=== PATIENT | male | born 1955 | race Caucasian/White ===

== ENCOUNTER → 2024-07-26 | Outpatient (CLI) | payer MEDICARE ==
[2024-07-26 13:16] VITALS: BP 119/82; PULSE 78; RESP 16
--- NOTE | 2024-07-26 15:04 | P.PAINPG ---
PQRS Measure Charge Sheet Comment: HISTORY OF PRESENT ILLNESS: A 69 yr old male as a referral from Dr Ricks presents today w severe and chronic secondary to L4-L5 laminectomy/ discectomy/ fusion w hardware for evaluation. Pt states pain level is provoked at 6/10 in intensity, constant, localized in the lower lumbar spine, predominantly axial, achy in character w occasional shooting pain towards the L hip and L knee. Pain is provoked by laying supine. Pain is alleviated by PT x 6 wks which ended in May 2024, physician guided home stretches daily since May 2024, medications (Ibu, Tyl, ASA, Diclofenac Gel), topical, heat, ice, repositioning and rest . PMH: OA, CO (2001) PSH: R Total Hip Replacement, Cardiac Catheterization w Stents (2001, 2002) SH: Negative x3 FH: Non contributory All: See list Meds: See list REVIEW OF ORGAN SYSTEMS: CONSTITUTIONAL: No fevers or chills. No recent weight loss. NEUROLOGICAL: + numbness and tingling along the distal extremities. No seizure disorders or headaches. MUSCULOSKELETAL: + pain PSYCHIATRIC: Denies current depression or suicidal thoughts. Physical Examinations : Constitutional : Cooperative , not in acute distress . Neurologic : Cranial nerve II to XII intact. No focal neurological deficits. Psychiatric : alert & oriented x 3. Matching mood & appropriate affect. Judgment & insight intact. Musculoskeletal : Cervical Spine Motor strength in the deltoid and biceps: Normal right side. Normal Left side Motor strength biceps and the wrist extensors: Normal right side . Normal left side Motor strength in the triceps muscle: Normal right side. Normal left side Deep tendon reflexes: Normal at the biceps. Normal at Brachioradialis. Normal at triceps Vertebral body tenderness to deep palpation over Cervical facet loading test: positive bilaterally Spurling test: positive bilaterally Neck distraction test: positive bilaterally Karolyn sign: positive bilaterally Lumbar spine +Incisional scars intact Motor strength lower extremities ,thigh and legs 5/5 Right side , 5/5 Left side Deep tendon reflexes : Normal Knee Jerk. Normal Ankle Jerk Vertebral body tenderness over L4 Morris Test positive Lumbar facet Loading Test: positive Right / positive Left Range of motion of the lumbar spine Flexion 30 degrees, extension 10 degrees Straight Leg Raise test: Left/ Right positive at < 35 degrees Rush test: positive right / positive left. Severe tenderness over the Sacroiliac joint on the Right / Left sides Gaenslen test: positive bilaterally Seated flexion test: positive bilaterally. Sacral spine : Severe tenderness over the Sacroiliac joint: right side / left side Range of motion: Flexion of the lumbar spine <60 degrees Range of motion: Extension of the lumbar spine <20 degrees Gaenslen's Test positive Rush test: positive right side / left side Thigh Thrust Test Sacral Thrust Test Imaging: X ray lumbar spine from 05/18/22 reviewed X ray R hip from 09/10/23 reviewed Assessment/ Plan : L4-L5 laminectomy/ discectomy/ fusion w hardware Recommendation of CT non contrast lumbar spine M54.16. May benefit from L TFESI L4-L5 #1. All questions answered. I have spent greater than 30 minutes on patient care today. Dr Carter was available by phone for the evaluation of this patient. The time was used to review the medical records including relevant urine studies and Prescription history (MAPs), review of the available imaging, evaluation and examination of the patient, coordination of care with the medical staff and if applicable referring physicians, as well as creation of the medical record Home Medications: Ambulatory Orders Aspirin [Adult Low Dose Aspirin EC] 81 mg PO 07/26/24 Fenofibrate,Micronized [Fenofibrate] 130 mg PO 07/26/24 Finasteride [Proscar] 5 mg PO DAILY 07/26/24 Meloxicam [Mobic] 15 PO DAILY 07/26/24 Olmesartan Medoxomil [Benicar] 40 mg PO 07/26/24 [place]-3/Dha/Epa/Fish Oil [Fish Oil 1,000 mg Softgel] 1 each PO 07/26/24 Rosuvastatin [Crestor] 20 mg PO 07/26/24 carvediloL 12.5 mg PO 07/26/24 Controlled Substance Measures - Controlled Substance Measures Is patient prescribed a controlled substance at discharge?: No
== END ==
LOC: PNWHC3 12:35
PROVIDERS: ATTEND Specialist
DX: M54.16 Radiculopathy, lumbar region
CPT/HCPCS: 99202

== ENCOUNTER → 2024-08-01 | Outpatient (CLI) | payer MEDICARE ==
--- NOTE | 2024-08-03 20:43 | CT ---
EXAMINATION TYPE: CT lumbar spine wo con DATE OF EXAM: 08/01/2024 COMPARISON: None HISTORY: Radiculopathy. CT DLP: 1749.7 mGycm CONTRAST: None TECHNIQUE: CT of the lumbar spine is performed on a spiral scan at 3 mm thick sections. Reconstructed images are performed in the coronal and sagittal planes. FINDINGS: T10-11, T11-12, T12-L1: No focal disc herniation or significant disc bulge is evident. No spinal canal stenosis or neural foraminal stenosis is present. L1-L2: Mild broad-based disc bulge is present with anterior thecal sac flattening. No AP spinal canal stenosis is present. Neural foramen are patent L2-L3: Disc space narrowing is present. Endplate spurring is present. There is anterior thecal sac fl attening. No AP spinal canal stenosis is present. Neural foramen are patent. L3-L4: Broad-based disc bulge has anterior thecal sac flattening. No spinal canal stenosis is present . Mild left and moderate right foraminal narrowing is present L4-L5: Beam hardening artifact from a disc spacer is present. Pedicle screws are present in L4 and L5 . This level has limited evaluation due to the beam hardening artifact. Obvious stenosis is not ident ified. L5-S1: Vacuum disc phenomenon is present. No spinal canal stenosis is evident. There is moderate to s evere left and right foraminal narrowing. No AP spinal canal stenosis evident Vertebral alignment appears normal. IMPRESSION: 1. Postsurgical changes L4-5. This level has limited evaluation due to metallic artifact. 2. Severe bilateral foraminal narrowing L5-S1. Correlate with the radicular symptoms. 3. Mild disc bulging L2-3 L3-4 without significant thecal sac compression [facility], , 08/03/2024 8:40 PM
== END | disposition home or self-care (01) ==
LOC: RADCTMAIN 14:54
PROVIDERS: ATTEND Specialist
DX: M51.17 Intervertebral disc disorders with radiculopathy, lumbosacral region (principal)
CPT/HCPCS: 72131

== ENCOUNTER → 2024-08-22 | Outpatient (CLI) | payer MEDICARE ==
[2024-08-22 09:28] VITALS: BP 137/76; PULSE 73; RESP 16; TEMP 97.1
--- NOTE | 2024-08-22 14:17 | P.PAINPG ---
PQRS Measure Charge Sheet Comment: HISTORY OF PRESENT ILLNESS: A 69 yr old male presents today w severe and chronic LBP > 1 yr secondary to L4-L5 laminectomy/ discectomy/ fusion w hardware for CT results. Pt states pain level is provoked at 6/10 in intensity, constant, localized in the lower lumbar spine, predominantly axial, achy in character w occasional shooting pain towards the L hip and L knee. Pain is provoked by laying supine. Pain is alleviated by PT x 5-6 wks which ended in May 2024, physician guided home stretches daily since May 2024, medications, topical, heat, ice, repositioning and rest . Interventional procedures include L4-L5 laminectomy/ discectomy/ fusion w hardware Medications incude ASA, Tyl, Ibu, Diclofenac Gel REVIEW OF ORGAN SYSTEMS: CONSTITUTIONAL: No fevers or chills. No recent weight loss. NEUROLOGICAL: + numbness and tingling along the distal extremities. No seizure disorders or headaches. MUSCULOSKELETAL: + pain PSYCHIATRIC: Denies current depression or suicidal thoughts. Physical Examinations : Constitutional : Cooperative , not in acute distress . Neurologic : Cranial nerve II to XII intact. No focal neurological deficits. Psychiatric : alert & oriented x 3. Matching mood & appropriate affect. Judgment & insight intact. Musculoskeletal : Cervical Spine Motor strength in the deltoid and biceps: Normal right side. Normal Left side Motor strength biceps and the wrist extensors: Normal right side . Normal left side Motor strength in the triceps muscle: Normal right side. Normal left side Deep tendon reflexes: Normal at the biceps. Normal at Brachioradialis. Normal at triceps Vertebral body tenderness to deep palpation over Cervical facet loading test: positive bilaterally Spurling test: positive bilaterally Neck distraction test: positive bilaterally Karolyn sign: positive bilaterally Lumbar spine +Incisional scars intact Motor strength lower extremities ,thigh and legs 5/5 Right side , 5/5 Left side Deep tendon reflexes : Normal Knee Jerk. Normal Ankle Jerk Vertebral body tenderness over L5 Morris Test positive Lumbar facet Loading Test: positive Right / positive Left Range of motion of the lumbar spine Flexion 30 degrees, extension 10 degrees Straight Leg Raise test: Left/ Right positive at < 35 degrees Rush test: positive right / positive left. Severe tenderness over the Sacroiliac joint on the Right / Left sides Gaenslen test: positive bilaterally Seated flexion test: positive bilaterally. Sacral spine : Severe tenderness over the Sacroiliac joint: right side / left side Range of motion: Flexion of the lumbar spine <60 degrees Range of motion: Extension of the lumbar spine <20 degrees Gaenslen's Test positive Rush test: positive right side / left side Thigh Thrust Test Sacral Thrust Test Imaging: CT non contrast lumbar spine from 08/01/24 reviewed X ray lumbar spine from 05/18/22 reviewed X ray R hip from 09/10/23 reviewed Assessment/ Plan : L4-L5 laminectomy/ discectomy/ fusion w hardware, L5-S1 radiculopathy Recommendation of L TFESI L4-L5/ L5-S1 #1. Risks, benefits of procedure discusse d and pt verbalized understanding. Protocol for discontinuation/ continuation of medications anny procedure discussed. All questions answered. I have spent greater than 30 minutes on patient care today. Dr Carter was available by phone for the evaluation of this patient. The time was used to review the medical records including relevant urine studies and Prescription history (MAPs), review of the available imaging, evaluation and examination of the patient, coordination of care with the medical staff and if applicable referring physicians, as well as creation of the medical record PQRS Narrative: Hx Alcohol Use (MH) Yes Home Medications: Ambulatory Orders Aspirin [Adult Low Dose Aspirin EC] 81 mg PO 07/26/24 Fenofibrate,Micronized [Fenofibrate] 130 mg PO 07/26/24 Finasteride [Proscar] 5 mg PO DAILY 07/26/24 Meloxicam [Mobic] 15 PO DAILY 07/26/24 Olmesartan Medoxomil [Benicar] 40 mg PO 07/26/24 [place]-3/Dha/Epa/Fish Oil [Fish Oil 1,000 mg Softgel] 1 each PO 07/26/24 Rosuvastatin [Crestor] 20 mg PO 07/26/24 carvediloL 12.5 mg PO 07/26/24 Controlled Substance Measures - Controlled Substance Measures Is patient prescribed a controlled substance at discharge?: No
== END ==
LOC: PNWHC3 09:06
PROVIDERS: ATTEND Specialist
DX: M43.26 Fusion of spine, lumbar region (principal); M54.17 Radiculopathy, lumbosacral region; Z98.890 Other specified postprocedural states
CPT/HCPCS: 99211

== ENCOUNTER 2024-09-11 07:26 | Day surgery (SDC) | payer MEDICARE ==
[2024-09-11] MEDS ORDERED: LACTATED RINGERS 1,000 ML IV SCH (07:53)
[2024-09-11 07:56] VITALS: RESP 16; TEMP 98
[2024-09-11] MEDS ORDERED: DEXAMETHASONE SOD PHOSPHATE 10 MG/ML 1 ML VIAL ONE (09:27)
[2024-09-11] MEDS ORDERED: IOPAMIDOL M300 15ML VIAL ONE (09:27)
--- NOTE | 2024-09-11 10:06 | P.PCN ---
Description of Procedure: PREOPERATIVE DIAGNOSIS: 1-Lumbar radiculopathy . 2-lumbar degenerative disc disease. 3-lumbar spondylosis with lumbar facet arthropathy without myelopathy POSTOPERATIVE DIAGNOSIS: 1-lumbar radiculopathy. 2-lumbar degenerative disc disease. 3-lumbar spondylosis with facet arthropathy without myelopathy PROCEDURE 1. Transforaminal epidural steroid injection under fluoroscopic guidance at LEFT L5-S1 level. (Fluoroscopy images stored on file in the radiology Department ) 2. Lumbar epidurogram . ANESTHESIA: Local with 1% lidocaine 5 ml. subcutaneously. Continuous pulse ox, EKG, blood pressure and verbal communication was maintained with the patient. EBL: Minimal PROCEDURE INDICATION: The patient with low back pain and radiculopathy symptoms unresponsive to conservative treatment. The patient was seen and identified in the preoperative area. Risks, benefits, complications, and alternatives were discussed with the patient. The patient agreed to proceed with the procedure and signed the consent. IV was started, and vital signs were stable. PROCEDURE DESCRIPTION / TECHNIQUE: After getting consent, patient was taken to the OR and time out was completed. The patient was placed in the prone position on procedure table and a pillow was placed under the abdomen to reduce lumbar lordosis. The lumbosacral area was prepped and draped in the usual sterile fashion. Critical pause was taken. After injecting 5 mL of plain 1% lidocaine subcutaneously, under oblique view of the fluoroscope, a 22-gauge spinal needle was introduced under the tunnel view of the fluoroscope on the LEFT side and the needle was advanced so that the tip of the needle was at the posterior inferior quadrant of the intervertebral foramen at the lateral view of the fluoroscope and in the lateral third of the facet column in the AP view of the fluoroscope. Negative CSF, negative blood, negative paresthesia. After needle position confirmation by AP and cross table lateral view, 3 mL of Isovue-M 200 contrast was injected under continuous fluoroscope. No contrast was noted in the intrathecal or intravascular space. The epidurogram was noted. Again after repeated negative aspiration 2.5 mL solution was injected which consists 1 mL of normal saline mixed with 1.5 mL of 15 mg dexamethasone. Needle was removed . Multiple attempts where tried to visualize L4-5 interspace without success because of past surgery and hardware. At the end of the procedure, skin was cleansed, and bandages were applied. Please note, NEXT INJECTION CONSIDER CAUDAL URVASHI. DISPOSITION / PLANS: No complication. The patient tolerated the procedure well. The patient was placed in a supine position and transferred to the recovery area in a stable condition for observation. There was no evidence of lower extremity motor or sensory deficit after the procedure. Patient was discharged from the recovery room after meeting discharge criteria. Home discharge instructions were given to the patient by the staff. The patient was reexamined prior to discharge.
--- NOTE | 2024-09-11 10:08 | FL ---
EXAMINATION TYPE: FL guided pain mgmt statistic DATE OF EXAM: 09/11/2024 10:03 AM COMPARISON: Pre Operative Images if available both CT/MRI or plain film CLINICAL INDICATION: Male, 69 years old with history of TRANSFORAMINAL EPI; TECHNIQUE: FL guided pain mgmt statistic, multiple fluoroscopic images provided for procedure. Total fluoroscopy time: 126.1 seconds Total submitted images to PACS: 4 DAP: 1.03 mGym2 Gycm2 uGym2 cGycm2 or equivalent. FINDINGS: Fluoroscopic images during injection for pain management demonstrate multilevel degeneration changes throughout the spine. No evidence for fracture. No acute process identified. IMPRESSION: 1. No evidence for intraoperative complication. 2. Please see the operative/procedural note for further details. [facility], , 09/11/2024 10:06 AM
[2024-09-11 10:19] VITALS: BP 121/77; PULSE 73
== END 2024-09-11 10:33 | disposition home or self-care (01) ==
LOC: ORPAIN 07:26
PROVIDERS: ATTEND Pain Medicine Interventional Pain Medicine
DX: M47.26 Other spondylosis with radiculopathy, lumbar region (principal)
CPT/HCPCS: 64483; 64484; J1100; Q9967

== ENCOUNTER → 2024-10-10 | Outpatient (CLI) | payer MEDICARE ==
[2024-10-10 10:02] VITALS: BP 138/92; PULSE 80; RESP 17; TEMP 97.7
--- NOTE | 2024-10-10 11:08 | XR ---
EXAMINATION TYPE: XR Hip Complete LT DATE OF EXAM: 10/10/2024 COMPARISON: NONE CLINICAL INDICATION: Male, 69 years old with history of M16.10 UNILATERAL PRIMARY OSTEOARTHRITIS, U; pain TECHNIQUE: 2 views FINDINGS: There is moderate degenerative change of the left hip with uniform joint space narrowing th roughout the hip joint with subchondral sclerosis. Marginal spurring of the femoral head neck junctio n. No acute fracture, subluxation, dislocation. Left pelvic phlebolith. IMPRESSION: Moderate left hip OA. No acute osseous abnormality seen. [facility], Workstation: [facility], 10/10/2024 11:06 AM
--- NOTE | 2024-10-10 15:15 | P.PAINPG ---
PQRS Measure Charge Sheet Comment: HISTORY OF PRESENT ILLNESS: A 69 yr old male presents today w severe and chronic LBP > 1 yr secondary to L4-L5 laminectomy/ discectomy/ fusion w hardware for evaluations/p L TFESI L5-S1 #1. Pt states he experienced 60-70 % pain relief x 4 wks s/p procedure. Pt states pain level is provoked at 3 /10 in intensity, constant, localized in the L hip, achy in character without shooting pain. Pain is provoked by weight bearing. Pain is alleviated by PT x 6 wks which ended in May 2024 (lumbar, hips), physician guided home stretches daily since May 2024, medications, topical, heat, ice, repositioning and rest. Interventional procedures include L4-L5 laminectomy/ discectomy/ fusion w hardware, L TFESI L5-S1 x1 Medications incude ASA, Tyl, Ibu, Diclofenac Gel REVIEW OF ORGAN SYSTEMS: CONSTITUTIONAL: No fevers or chills. No recent weight loss. NEUROLOGICAL: + numbness and tingling along the distal extremities. No seizure disorders or headaches. MUSCULOSKELETAL: + pain PSYCHIATRIC: Denies current depression or suicidal thoughts. Physical Examinations : Constitutional : Cooperative , not in acute distress . Neurologic : Cranial nerve II to XII intact. No focal neurological deficits. Psychiatric : alert & oriented x 3. Matching mood & appropriate affect. Judgment & insight intact. Musculoskeletal : +L Trendelenburg Cervical Spine Motor strength in the deltoid and biceps: Normal right side. Normal Left side Motor strength biceps and the wrist ext ensors: Normal right side . Normal left side Motor strength in the triceps muscle: Normal right side. Normal left side Deep tendon reflexes: Normal at the biceps. Normal at Brachioradialis. Normal at triceps Vertebral body tenderness to deep palpation over Cervical facet loading test: positive bilaterally Spurling test: positive bilaterally Neck distraction test: positive bilaterally Karolyn sign: positive bilaterally Lumbar spine +Incisional scars intact Motor strength lower extremities ,thigh and legs 5/5 Right side , 5/5 Left side Deep tendon reflexes : Normal Knee Jerk. Normal Ankle Jerk Vertebral body tenderness over L5 Morris Test positive Lumbar facet Loading Test: positive Right / positive Left Range of motion of the lumbar spine Flexion 30 degrees, extension 10 degrees Straight Leg Raise test: Left/ Right positive at < 35 degrees Rush test: positive right / positive left. Severe tenderness over the Sacroiliac joint on the Right / Left sides [place] test: positive bilaterally Seated flexion test: positive bilaterally. Sacral spine : Severe tenderness over the Sacroiliac joint: right side / left side Range of motion: Flexion of the lumbar spine <60 degrees Range of motion: Extension of the lumbar spine <20 degrees Gaenslen's Test positive Rush test: positive right side / left side Thigh Thrust Test Sacral Thrust Test Imaging: CT non contrast lumbar spine from 08/01/24 reviewed X ray lumbar spine from 05/18/22 reviewed X ray R hip from 09/10/23 reviewed Assessment/ Plan : L4-L5 laminectomy/ discectomy/ fusion w hardware, L5-S1 radiculopathy, L hip DJD Recommendation of L hip x ray M16.10. All questions answered. I have spent greater than 30 minutes on patient care today. Dr Carter was available by phone for the evaluation of this patient. The time was used to review the medical records including relevant urine studies and Prescription history (MAPs), review of the available imaging, evaluation and examination of the patient, coordination of care with the medical staff and if applicable referring physicians, as well as creation of the medical record PQRS Narrative: Hx Alcohol Use (MH) Yes Home Medications: Ambulatory Orders Aspirin [Adult Low Dose Aspirin EC] 81 mg PO DAILY 07/26/24 Fenofibrate,Micronized [Fenofibrate] 130 mg PO DAILY 07/26/24 Finasteride [Proscar] 5 mg PO DAILY 07/26/24 Meloxicam [Mobic] 15 mg PO DAILY 07/26/24 Olmesartan Medoxomil [Benicar] 40 mg PO HS 07/26/24 [place]-3/Dha/Epa/Fish Oil [Fish Oil 1,000 mg Softgel] 1 each PO HS 07/26/24 Rosuvastatin [Crestor] 20 mg PO HS 07/26/24 carvediloL 12.5 mg PO BID 07/26/24 Controlled Substance Measures - Controlled Substance Measures Is patient prescribed a controlled substance at discharge?: No
== END ==
LOC: PNWHC3 09:05
PROVIDERS: ATTEND Specialist
DX: M96.1 Postlaminectomy syndrome, not elsewhere classified (principal); M54.17 Radiculopathy, lumbosacral region; M16.12 Unilateral primary osteoarthritis, left hip
CPT/HCPCS: 73502; 99211

== ENCOUNTER → 2024-10-15 | Outpatient (CLI) | payer MEDICARE ==
--- NOTE | 2024-10-15 09:17 | CT ---
EXAMINATION TYPE: CT hip LT wo con DATE OF EXAM: 10/15/2024 9:10 AM COMPARISON: 10/10/2024 CLINICAL INDICATION: Male, 69 years old with history of M16.10 UNILATERAL PRIMARY OSTEOARTHRITIS, UNS PECIF; PHH, left hip pain TECHNIQUE: Axial images were obtained of the CT hip LT wo con, Additional coronal and sagittal reform atted images and soft tissue and bone window were obtained for review. 3-D reconstruction was created on a separate workstation. Contrast used: mL of , (None if empty) Oral contrast used: (None if empty) CT DLP: 620 mGycm, Automated exposure control for dose reduction was used. FINDINGS: Joint space narrowing with osteophyte formation and subchondral cystic change involving the left acetabulum. No evidence of fracture. Mild degeneration changes of the pubic symphysis and left sacroiliac joint visualized. Pelvic fluid was noted. Scattered calcified atherosclerotic plaque. IMPRESSION: 1. No evidence of fracture. 2. Moderate severe left hip osteoporosis with suspected full-thickness cartilage defects. [facility], , 10/15/2024 9:15 AM
== END | disposition home or self-care (01) ==
LOC: RADCTMAIN 08:44
PROVIDERS: ATTEND Specialist
DX: M16.12 Unilateral primary osteoarthritis, left hip (principal)

== ENCOUNTER 2025-03-06 20:38 | Emergency (ER) | payer MEDICARE ==
[2025-03-06 20:42] VITALS: TEMP 97.8
[2025-03-06 20:46] LABS: Glucose,Whole Blood 117 mg/dL (70-110)
[2025-03-06 21:18] LABS: Basophils # (A) 0.03 10*3/uL (0.00-0.10); Basophils % (A) 0.3 %; Eosinophils # (A) 0.05 10*3/uL (0.04-0.35); Eosinophils % (A) 0.6 %; HCT 33.9 % (39.6-50.0); Lymphocytes % (A) 11.5 %; MCH 30.8 pg (27.0-32.0); MCHC 35.4 g/dL (32.0-37.0); MCV 87.1 fL (80.0-97.0); Mean Platelet Volume 11.1 fL (9.5-12.2); Monocytes # (A) 1.15 10*3/uL (0.20-1.00); Monocytes % (A) 13.3 %; Neutrophils # (A) 6.41 10*3/uL (1.80-7.70); Neutrophils % (A) 74.1 %; Platelet Count 173 10*3/uL (140-440); RBC 3.89 10*6/uL (4.40-5.60); RDW 13.1 % (11.5-14.5); WBC 8.66 10*3/uL (4.50-10.00)
[2025-03-06] MEDS: SODIUM CHLORIDE 0.9% 1,000 ML IV STA (21:22)
[2025-03-06] MEDS: ONDANSETRON 4 MG/2 ML VIAL IVP STA (21:23)
[2025-03-06 21:24] LABS: ALT 12 U/L (4-49); AST 20 U/L (17-59); African American GFR (CKD) >90 (>60 ml/min/1.73 sqM); Albumin 3.2 g/dL (3.5-5.0); Alkaline Phosphatase 37 U/L (38-126); Anion Gap 8 mmol/L; Blood Urea Nitrogen 16 mg/dL (9-20); Calcium 8.9 mg/dL (8.4-10.2); Carbon Dioxide 23 mmol/L (22-30); Chloride 104 mmol/L (98-107); Glucose 116 mg/dL (74-99); Magnesium 1.9 mg/dL (1.6-2.3); Non-African American GFR(CKD) 89 (>60 ml/min/1.73 sqM); Sodium 135 mmol/L (137-145); Total Bilirubin 0.6 mg/dL (0.2-1.3); Total Protein 5.4 g/dL (6.3-8.2)
--- NOTE | 2025-03-06 21:34 | XR ---
EXAMINATION TYPE: XR chest 2V DATE OF EXAM: 03/06/2025 9:21 PM COMPARISON: None. CLINICAL INDICATION: Male, 69 years old with history of syncope, TECHNIQUE: XR chest 2V view(s) obtained. FINDINGS: The heart size is normal. The pulmonary vasculature is normal. The lungs are clear. IMPRESSION: 1. No acute pulmonary process. [facility], , 03/06/2025 9:31 PM
[2025-03-06 21:41] LABS: INR 1.2 (<1.2); Partial Thromboplastin Time 23.6 sec (22.0-30.0); Prothrombin Time 12.5 sec (10.0-12.5)
--- NOTE | 2025-03-06 21:54 | ED ---
Syncope HPI - General Chief Complaint: Syncope Stated Complaint: Syncope Time Seen by Provider: 03/06/25 20:40 Source: patient, EMS, RN notes reviewed Mode of arrival: EMS Limitations: no limitations - History of Present Illness Initial Comments: This is a 69-year-old male who presents to the emergency department for syncope. Patient was discharged from the hospital earlier today after undergoing a left hip replacement yesterday. Shortly after he got home he felt dizzy and his son lowered him to the ground and advised that he had a syncopal episode. Denies sustaining any injuries during this event. Later in the day he started to feel dizzy again and went to sit down on the couch. His states that his eyes rolled back in his head and he seemed to pass out temporarily. Again denies sustaining any injuries during this event. Unsure how long he had passed out for, but does not believe it was very long. Denies any headaches, chest pain, or shortness of breath. Reports mild nausea. States that this happened to him a couple of years ago after a right hip replacement and it was attributed to taking gabapentin and Flomax. Unsure if that was actually the case. No longer taking those medications. - Related Data Home Medications Medication Instructions Recorded Confirmed Aspirin [Adult Low Dose Aspirin EC] 81 mg PO BID 07/26/24 03/06/25 Fenofibrate,Micronized 130 mg PO DAILY 07/26/24 03/05/25 [Fenofibrate] Finasteride [Proscar] 5 mg PO DAILY 07/26/24 03/05/25 Meloxicam [Mobic] 15 mg PO DAILY 07/26/24 03/05/25 Olmesartan Medoxomil [Benicar] 40 mg PO HS 07/26/24 03/05/25 [place]-3/Dha/Epa/Fish Oil [Fish Oil 1 each PO HS 07/26/24 03/05/25 1,000 mg Softgel] Rosuvastatin [Crestor] 20 mg PO HS 07/26/24 03/05/25 carvediloL 12.5 mg PO BID 07/26/24 03/05/25 Previous Rx's Medication Instructions Recorded HYDROcodone/APAP 5-325MG [Whick 1 - 2 tab PO Q6HR PRN #36 tab 03/06/25 5-325] Ondansetron Odt [Zofran Odt] 4 mg PO Q8HR PRN #20 tab 03/06/25 Sennosides/Docusate Sodium [Senna 1 each PO DAILY #20 capsule 03/06/25 Plus 8.6-50 mg Softgel] Allergies Allergy/AdvReac Type Severity Reaction Status Date / Time gabapentin AdvReac Unknown Verified 03/06/25 20:42 tamsulosin [From Flomax] AdvReac Unknown Verified 03/06/25 20:42 Review of Systems ROS Statement: Those systems with pertinent positive or pertinent negative responses have been documented in the HPI. ROS Other: All systems not noted in ROS Statement are negative. Past Medical History Past Medical History: Hyperlipidemia, Myocardial Infarction (MT), Prostate Disorder Additional Past Medical History / Comment(s): not sure why take carvedilol, enlarged prostate, day came home from hospital from hip surgery passed out and dislocated hip Last Myocardial Infarction Date:: 2001 History of Any Multi-Drug Resistant Organisms: None Reported Past Surgical History: Back Surgery, Heart Catheterization With Stent, Joint Replacement Additional Past Surgical History / Comment(s): stents x4, rt hip replacement, back fusion,allyn cataracts removed Past Anesthesia/Blood Transfusion Reactions: No Reported Reaction Date of Last Stent Placement:: 2001, Smoking Status: Former smoker Past Alcohol Use History: Occasional Past Drug Use History: None Reported - Past Family History Sister(s) Family Medical History: Cancer Additional Family Medical History / Comment(s): "female" cancer General Exam Limitations: no limitations General appearance: alert, in no apparent distress Head exam: Present: atraumatic, normocephalic, normal inspection Respiratory exam: Present: normal lung sounds bilaterally. Absent: respiratory distress, wheezes, rales, rhonchi, stridor Cardiovascular Exam: Present: regular rate, normal rhythm Neurological exam: Present: alert, oriented X3, CN II-XII intact Psychiatric exam: Present: normal affect, normal mood Skin exam: Present: warm, dry, intact, normal color. Absent: rash Course Vital Signs 03/06/25 03/06/25 20:39 23:23 Temperature 97.8 F Pulse Rate 105 H 98 Respiratory 18 17 Rate Blood Pressure 109/65 103/68 O2 Sat by Pulse 98 99 Oximetry Medical Decision Making - Medical Decision Making This is a 69-year-old male who presents to the emergency department for syncope. Was pt. sent in by a medical professional or institution? @ -No Did you speak to anyone other than the patient for history? @ -No Did you review nursing and triage notes? @ -Yes, and I agree, it is accurate with regards to the patient's symptoms. Were old charts reviewed? @ -No Differential Diagnosis? @ -Differential Syncope: Valvular disease, hypertrophic cardiomyopathy, pulmonary embolism, tamponade, tachycardia, bradycardia, MT, hypovolemia, hemorrhage, dissection, anemia, intracranial hemorrhage, seizure, hypoglycemia, carbon monoxide poisoning, this is not meant to be an all-inclusive list. EKG interpreted by me (3pts min.)? @ -EKG interpreted by me demonstrating the following: Sinus tachycardia. Ventricular rate 102 bpm, NC interval 228 ms, QRS duration 112 ms, QTc 471 ms. X-rays interpreted by me (1pt min.)? @ -Chest x-ray obtained, my interpretation identifies no localized consolidations or infiltrates. CT interpreted by me (1pt min.)? @ -Not obtained U/S interpreted by me (1pt. min.)? @ -Not obtained What testing was considered but not performed? (CT, X-rays, U/S, labs)? Why? @ -None What meds were considered but not given? Why? @ -None Did you discuss the management of the patient with other professionals? @ -No Did you reconcile home meds? @ -No Was smoking cessation discussed for >3mins.? @ -No Was critical care preformed (if so, how long)? @ -No Were there social determinants of health that impacted care today? How? (Homelessness, low income, unemployed, alcoholism, drug addiction, transportation, low edu. Level, literacy, decrease access to med. care, assisted, rehab)? @ -No Was there de-escalation of care discussed even if they declined? (Discuss DNR or withdrawal of care, Hospice)? @ -No What co-morbidities impacted this encounter? (DM, HTN, Smoking, COPD, CAD, Cancer, CVA, Hep., AIDS, mental health diagnosis, sleep apnea, morbid obesity)? @ -HTN Was patient admitted / discharged? @ -Discharged. Lab work unremarkable. Urinalysis negative for signs of infection. Chest x-ray reveals no acute process. He did have a couple episodes of hypotension in the emergency department where his BP was in the 90s systolically. He was treated with a liter bolus of IV fluids. He does take Benicar each night for his blood pressure. He is also currently taking Whick for pain control. Advised that if he is having episodes where his BP is dropping too much, it can contribute to the dizziness and syncope. Given that his BP is currently on the lower side, advised that he hold his blood pressure medication for the next 2 days and keep a log of his blood pressure at home. Advised he contact his PCP in the morning for a follow-up appointment and reevaluation. Patient discharged home in stable condition. Case discussed with ED attending Dr. Canela. Return precautions reviewed in depth, the patient is instructed to return to the emergency department with any new, worsening, or concerning symptoms. Patient verbalized understanding. Undiagnosed new problem with uncertain prognosis? @ -None Drug Therapy requiring intensive monitoring for toxicity (Heparin, Nitro, Insulin, Cardizem)? @ -None Were any procedures done? @ -None Diagnosis/symptom? @ -Syncope, hypotension Acute, or Chronic, or Acute on Chronic? @ -Acute Uncomplicated (without systemic symptoms) or Complicated (systemic symptoms)? @ -Uncomplicated Side effects of treatment? @ -None Exacerbation, Progression, or Severe Exacerbation] @ -Not applicable Poses a threat to life or bodily function? @ -Unlikely - Lab Data Result diagrams: 03/06/25 20:38 03/06/25 20:38 Lab Results 03/06/25 03/06/25 03/06/25 Range/Units 20:38 20:38 20:38 WBC 8.66 (4.50-10.00) 10*3/uL RBC 3.89 L (4.40-5.60) 10*6/uL Hgb 12.0 L (13.0-17.0) g/dL Hct 33.9 L (39.6-50.0) % MCV 87.1 (80.0-97.0) fL MCH 30.8 (27.0-32.0) pg MCHC 35.4 (32.0-37.0) g/dL Plt Count 173 (140-440) 10*3/uL MPV 11.1 (9.5-12.2) fL Immature Gran % (Auto) 0.2 % Neutrophils % 74.1 % Lymphocytes % 11.5 % Monocytes % 13.3 % Eosinophils % 0.6 % Basophils % 0.3 % Immature Gran # 0.02 (0.00-0.04) 10*3/uL Neutrophils # 6.41 (1.80-7.70) 10*3/uL Lymphocytes # 1.00 (0.90-5.00) 10*3/uL Monocytes # 1.15 H (0.20-1.00) 10*3/uL Eosinophils # 0.05 (0.04-0.35) 10*3/uL Basophils # 0.03 (0.00-0.10) 10*3/uL PT 12.5 (10.0-12.5) sec INR 1.2 H (<1.2) APTT 23.6 (22.0-30.0) sec Sodium 135 L (137-145) mmol/L Potassium 4.0 (3.5-5.1) mmol/L Chloride 104 (98-107) mmol/L Carbon Dioxide 23 (22-30) mmol/L Anion Gap 8 mmol/L BUN 16 (9-20) mg/dL Creatinine 0.81 (0.66-1.25) mg/dL Est GFR (CKD-EPI)AfAm >90 (>60 ml/min/1.73 sqM) Est GFR (CKD-EPI)NonAf 89 (>60 ml/min/1.73 sqM) Glucose 116 H (74-99) mg/dL POC Glucose (mg/dL) (70-110) mg/dL POC Glu Public Address Technician ID Calcium 8.9 (8.4-10.2) mg/dL Magnesium 1.9 (1.6-2.3) mg/dL Total Bilirubin 0.6 (0.2-1.3) mg/dL AST 20 (17-59) U/L ALT 12 (4-49) U/L Alkaline Phosphatase 37 L (38-126) U/L Troponin I (0.000-0.034) ng/mL Total Protein 5.4 L (6.3-8.2) g/dL Albumin 3.2 L (3.5-5.0) g/dL Urine Color Urine Appearance (Clear) Urine pH (5.0-8.0) Ur Specific Slemp (1.001-1.035) Urine Protein (Negative) Urine Glucose (UA) (Negative) Urine Ketones (Negative) Urine Blood (Negative) Urine Nitrite (Negative) Urine Bilirubin (Negative) Urine Urobilinogen (<2.0) mg/dL Ur Leukocyte Esterase (Negative) 03/06/25 03/06/25 03/06/25 Range/Units 20:38 20:45 22:42 WBC (4.50-10.00) 10*3/uL RBC (4.40-5.60) 10*6/uL Hgb (13.0-17.0) g/dL Hct (39.6-50.0) % MCV (80.0-97.0) fL MCH (27.0-32.0) pg MCHC (32.0-37.0) g/dL Plt Count (140-440) 10*3/uL MPV (9.5-12.2) fL Immature Gran % (Auto) % Neutrophils % % Lymphocytes % % Monocytes % % Eosinophils % % Basophils % % Immature Gran # (0.00-0.04) 10*3/uL Neutrophils # (1.80-7.70) 10*3/uL Lymphocytes # (0.90-5.00) 10*3/uL Monocytes # (0.20-1.00) 10*3/uL Eosinophils # (0.04-0.35) 10*3/uL Basophils # (0.00-0.10) 10*3/uL PT (10.0-12.5) sec INR (<1.2) APTT (22.0-30.0) sec Sodium (137-145) mmol/L Potassium (3.5-5.1) mmol/L Chloride (98-107) mmol/L Carbon Dioxide (22-30) mmol/L Anion Gap mmol/L BUN (9-20) mg/dL Creatinine (0.66-1.25) mg/dL Est GFR (CKD-EPI)AfAm (>60 ml/min/1.73 sqM) Est GFR (CKD-EPI)NonAf (>60 ml/min/1.73 sqM) Glucose (74-99) mg/dL POC Glucose (mg/dL) 117 H (70-110) mg/dL POC Glu Public Address Technician ID Chen Noe Calcium (8.4-10.2) mg/dL Magnesium (1.6-2.3) mg/dL Total Bilirubin (0.2-1.3) mg/dL AST (17-59) U/L ALT (4-49) U/L Alkaline Phosphatase (38-126) U/L Troponin I <0.012 (0.000-0.034) ng/mL Total Protein (6.3-8.2) g/dL Albumin (3.5-5.0) g/dL Urine Color Yellow Urine Appearance Clear (Clear) Urine pH 6.0 (5.0-8.0) Ur Specific Slemp 1.015 (1.001-1.035) Urine Protein Negative (Negative) Urine Glucose (UA) Negative (Negative) Urine Ketones Negative (Negative) Urine Blood Negative (Negative) Urine Nitrite Negative (Negative) Urine Bilirubin Negative (Negative) Urine Urobilinogen 2.0 (<2.0) mg/dL Ur Leukocyte Esterase Negative (Negative) - Radiology Data Radiology results: report reviewed, image reviewed Disposition Clinical Impression: Syncope, Hypotension Disposition: HOME SELF-CARE Instructions (If sedation given, give patient instructions): Syncope (ED) Additional Instructions: Return to the emergency department with any new, worsening, or concerning symptoms. Avoid taking your olmesartan medication for the next 2 nights. Continue to keep track of your blood pressure at home and check it several times a day, keeping a log of these values. Contact your primary care provider in the morning for a follow-up appointment. Let them know that you were seen in the emergency department for 2 syncopal episodes and your blood pressure was low. Bring your blood pressure machine with you to your appointment and they can compare it with their machine to check it for accuracy. You can take the Zofran up to every 8 hours as needed for nausea and vomiting. Prescriptions: Ondansetron Odt [Zofran Odt] 4 mg PO Q8HR PRN #20 tab PRN Reason: Nausea And Vomiting Is patient prescribed a controlled substance at d/c from ED?: No Referrals: Demetrio Henao MD [Primary Care Provider] - 1-2 days Time of Disposition: 23:12
[2025-03-06 22:54] LABS: Appearance,Urine Clear (Clear); Bilirubin,Urine Negative (Negative); Blood,Urine Negative (Negative); Color,Urine Yellow; Glucose,Urine (UA) Negative (Negative); Ketones,Urine Negative (Negative); Leukocyte Esterase,Urine Negative (Negative); Nitrite,Urine Negative (Negative); Protein,Urine Negative (Negative); Specific Gravity,Urine 1.015 (1.001-1.035)
[2025-03-06] MEDS: ONDANSETRON 4 MG ODT STARTER PACK 2 TAB BTL PO STA (23:21)
[2025-03-06 23:25] VITALS: BP 103/68; PULSE 98; RESP 17
== END 2025-03-06 23:34 | disposition home or self-care (01) ==
LOC: EC 20:38
DX: I95.9 Hypotension, unspecified (principal); Z88.8 Allergy status to other drugs, medicaments and biological substances; Z87.891 Personal history of nicotine dependence
CPT/HCPCS: 36415; 93005; 80053; 83735; 84484; 85025; 85610; 85730; 81003; 71046; 99285; 96374; 96361; J2405; S0119